=== PATIENT | male | born 1980 ===

== ENCOUNTER 2019-01-02 03:08 | Emergency (ER) | payer OTHER ==
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
[2019-01-02 06:10] VITALS: BP 122/77; PULSE 80; RESP 20; TEMP 98
[2019-01-02 06:12] VITALS: O2SAT 99
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
== END 2019-01-02 06:18 | disposition home or self-care (01) ==
LOC: C.ER 03:08
DX: S00.03XA Contusion of scalp, initial encounter (principal); Y04.8XXA Assault by other bodily force, initial encounter; F10.10 Alcohol abuse, uncomplicated